=== PATIENT | male | born 1995 | race African-American/Black ===

== ENCOUNTER 2016-08-22 18:55 | Emergency (ER) | payer OTHER ==
--- NOTE | 2016-08-22 19:21 | ER Document Report ---
ED Medical Screen (RME) - General Stated Complaint: BLOOD IN URINE Mode of Arrival: Ambulatory Information source: Patient Notes: 21 y/o M presents to ED c/o dysuria, penile discharge, and hematuria. Reports previous hx of chlamydia and gonorrhea. I have greeted and performed a rapid initial assessment of this patient. A comprehensive ED assessment and evaluation of the patient, analysis of test results and completion of the medical decision making process will be conducted by additional ED providers. TRAVEL OUTSIDE OF THE [place] IN LAST 30 DAYS: No - Related Data Allergies/Adverse Reactions: No Known Allergies Allergy (Verified 08/22/16 19:12) Past Medical History Musculoskeltal Medical History: Reports Hx Musculoskeletal Trauma - Immunizations Immunizations up to date: Yes Hx Diphtheria, Pertussis, Tetanus Vaccination: Yes Physical Exam - General General appearance: Appears well, Alert In distress: None
[2016-08-22 20:09] LABS: APPEARANCE,URINE CLEAR; BILIRUBIN,URINE NEGATIVE (NEGATIVE); GLUCOSE, URINE NEGATIVE (NEGATIVE); KETONES,URINE TRACE mg/dL (NEGATIVE); LEUKOCYTE ESTERASE,URINE NEGATIVE (NEGATIVE); NITRITE,URINE POSITIVE (NEGATIVE); PROTEIN,URINE NEGATIVE (NEGATIVE); URINE SPECIFIC GRAVITY 1.023
[2016-08-22 21:21] LABS: CHLAM PCR NOT DETECTED (NOT DETECT)
--- NOTE | 2016-08-22 22:49 | ER Document Report ---
ED General - General Chief Complaint: Urinary Problem Stated Complaint: BLOOD IN URINE Mode of Arrival: Ambulatory Notes: Patient is a 21-year-old male presents with complaints of noticing some blood in his urine last week. Also some dysuria and some discharge from his penis. [place] He was given a shot of ceftriaxone and 1000 mg azithromycin. He also had blood work and urine performed. These tests were negative. He was still having symptoms and therefore one back today and they did a urethral swab results from that are pending. He then came to the ER for second evaluation and opinion. He said no abdominal pain. No fevers. No vomiting. No diarrhea. No other complaints at this time. They also did place him on Pyridium. TRAVEL OUTSIDE OF THE [place] IN LAST 30 DAYS: No - Related Data Allergies/Adverse Reactions: No Known Allergies Allergy (Verified 08/22/16 19:12) Past Medical History - General Information source: Patient - Social History Smoking Status: Never Smoker Chew tobacco use (# tins/day): No Frequency of alcohol use: None Drug Abuse: None Family History: Reviewed & Not Pertinent. denies: Malignancy Patient has suicidal ideation: No Patient has homicidal ideation: No Renal/ Medical History: Denies: Hx Peritoneal Dialysis Musculoskeltal Medical History: Reports Hx Musculoskeletal Trauma - Immunizations Immunizations up to date: Yes Hx Diphtheria, Pertussis, Tetanus Vaccination: Yes Review of Systems - Review of Systems Notes: My Normal Review Basic REVIEW OF SYSTEMS: CONSTITUTIONAL : Denies fever, chills, or sweats. Denies recent illness. RESPIRATORY: Denies cough, cold, or chest congestion. Denies shortness of breath, difficulty breathing, or wheezing. GASTROINTESTINAL: Denies abdominal pain. Denies nausea, vomiting, or diarrhea. Denies constipation. Last BM: GENITOURINARY: Urethral discharge. Dysuria. MUSCULOSKELETAL: Denies neck or back pain or joint pain or swelling. SKIN: Denies rash or skin lesions. NEUROLOGICAL: Denies altered mental status or loss of consciousness. Denies headache. Denies weakness or paralysis or loss of use of either side. Denies problems with gait or speech. Denies sensory or motor loss. ALL OTHER SYSTEMS REVIEWED AND NEGATIVE. Physical Exam - Notes Notes: General Appearance: Well nourished, alert, cooperative, no acute distress, no obvious discomfort. Well-appearing. Vitals: reviewed, See vital signs table. Head: no swelling or tenderness to the head Eyes: PERRL, EOMI, Conjuctiva clear Lungs: No wheezing, No rales, No rhonci, No accessory muscle use, good air exchange bilaterally. Heart: Normal rate, Regular rythm, No murmur, no rub General: Normal. External genitalia. No discharge from the penis. No irritation or redness. Skin: warm, dry, appropriate color, no rash Neuro: speech clear, oriented x 3, normal affect, responds appropriately to questions. Course - Laboratory Laboratory results interpreted by me: 08/22/16 19:20 Urine Ketones TRACE H Urine Nitrite POSITIVE H Urine Urobilinogen 4.0 H Urine Ascorbic Acid 20 H - Transfer of Care Notes: 08/22/16 23:18 Patient urinalysis just shows positive nitrates but no other signs of infection. There is just a few red blood cells in urine. I suspect patient probably does have a sexual transmitted disease in the 80s swab results are pending. He says that the discharge has worsened despite treatment with antibiotic. He may have some resistance to the ceftriaxone therefore we'll place on Cipro for a few days. I strongly encouraged him to follow closely with his physician for the results will swab. If he continues to have issues he may need referral to urologist by his primary care doctor. Patient occurs return to ER if his fevers, no swelling, difficulty urinating, or feels unwell. Patient agrees with plan and will be discharged home. I did verbally informed the patient that he should not lift any heavy weights or doing exertional activities when taking the Cipro being that it can, on rare occasions , weaken tendons and cause tendon rupture. Patient is understanding of this. Dictation of this chart was performed using voice recognition software; therefore, there may be some unintended grammatical errors. Discharge - Discharge Clinical Impression: Dysuria Condition: Good Disposition: HOME, SELF-CARE Additional Instructions: Please return to the ER immediately if you have difficulty passing urine, increased discharge,fevers, or swelling to your penis. Please follow up with your doctor for the results of your swab. The antibiotic I have placed you on can sometimes cause weakening of your tendons. Please do not do any exertional activity or heavy lifting until at least 1 week after you are done taking the antibiotics. Prescriptions: Ciprofloxacin HCl [Cipro 500 mg Tablet] 500 mg PO BID #10 tablet
[2016-08-22] MEDS ORDERED: CIPROFLOXACIN HCL 500 MG TABLET PO ONE (23:00)
[2016-08-23 02:45] VITALS: BP 132/70
== END 2016-08-23 01:00 | disposition home or self-care (01) ==
LOC: ER 18:55
DX: R30.0 Dysuria (principal); R31.9 Hematuria, unspecified; R36.9 Urethral discharge, unspecified
CPT/HCPCS: 81001; 87491; 87591; 99283